=== PATIENT | male | born 1980 | race African-American/Black ===

== ENCOUNTER 2017-07-26 17:37 | Inpatient (IN) | payer OTHER ==
[2017-07-26 17:53] VITALS: BMI 32.1
--- NOTE | 2017-07-26 22:45 | HP ---
COWS - Scale Resting Pulse: 0= [place] 80 or Below Sweatin=Flushed/Facial Moisture Restless Observation: 1= Difficult to Sit Still Pupil Size: 1= Pupils >than Normal Bone or Joint Aches: 4=Acute Joint/Muscle Pain Runny Nose/ Eye Tearin= Runny Nose/Eyes GI Upset > 30mins: 2= Nausea/Diarrhea (diarrhea x 3) Tremor Observation: 2= Slight Tremor Visible Yawning Observation: 1= 1-2x During Session Anxiety or Irritability: 2=Irritable/Anxious Goose Flesh Skin: 0=Smooth Skin COWS Score: 17 CIWA Score - CIWA Score Nausea/Vomitin Muscle Tremors: 2 Anxiety: 3 Agitation: 0-Normal Activity Paroxysmal Sweats: 2 Orientation: 1-Uncertain about Date Tacttile Disturbances: 0-None Auditory Disturbances: 0-None Visual Disturbances: 0-None Headache: 4-Moderately Severe CIWA-Ar Total Score: 15 Admission ROS S - HPI Chief Complaint: Heroin and alcohol withdrawal symptoms Allergies/Adverse Reactions: Allergies Allergy/AdvReac Type Severity Reaction Status Date / Time No Known Allergies Allergy Verified 07/26/17 21:40 History of Present Illness: 37 years old male with a long history of heroin and alcohol dependence is seeking admission to detox. Patient has been to previous detox, last at [facility] in 2011. and he reports 6 years of sobriety. He denies past medical history, suicide attempt and suicidal ideation at this time. Exam Limitations: No Limitations - Ebola screening Have you traveled outside of the country in the last 21 days: No Have you had contact with anyone from an Ebola affected area: No Have you been sick,other than usual withdrawal symptoms: No Do you have a fever: No - Review of Systems Constitutional: Chills, Loss of Appetite, Malaise, Changes in sleep EENT: reports: No Symptoms Reported Respiratory: reports: No Symptoms reported Cardiac: reports: No Symptoms Reported GI: reports: Diarrhea (x 2), Poor Appetite, Poor Fluid Intake, Abdominal cramping : reports: No Symptoms Reported Musculoskeletal: reports: Back Pain, Muscle Pain Integumentary: reports: Dryness Neuro: reports: Headache, Tremors Endocrine: reports: No Symptoms Reported Hematology: reports: No Symptoms Reported Psychiatric: reports: Anxious Other Systems: Reviewed and Negative Patient History - Patient Medical History Hx Anemia: No Hx Asthma: No Hx Chronic Obstructive Pulmonary Disease (COPD): No Hx Cancer: No Hx Cardiac Disorders: No Hx Congestive Heart Failure: No Hx Hypertension: No Hx Hypercholesterolemia: No Hx Pacemaker: No HX Cerebrovascular Accident: No Hx Seizures: No Hx Dementia: No Hx Diabetes: No Hx Gastrointestinal Disorders: No Hx Liver Disease: No Hx Genitourinary Disorders: No Hx Sexually Transmitted Disorders: No (Negative 2017) Hx Renal Disease (ESRD): No Hx Thyroid Disease: No Hx Human Immunodeficiency Virus (HIV): No Hx Hepatitis C: No Hx Depression: No Hx Suicide Attempt: No (Denies suicide attempt and suicidal ideation at this time) Hx Bipolar Disorder: No Hx Schizophrenia: No Other Medical History: Anxiety- Not on mediccation - Patient Surgical History Past Surgical History: No Hx Neurologic Surgery: No Hx Cataract Extraction: No Hx Cardiac Surgery: No Hx Lung Surgery: No Hx Breast Surgery: No Hx Breast Biopsy: No Hx Abdominal Surgery: No Hx Appendectomy: No Hx Cholecystectomy: No Hx Genitourinary Surgery: No Hx Section: No Hx Orthopedic Surgery: No Hx Hysterectomy: No Anesthesia Reaction: No - PPD History Previous Implant?: Yes Documented Results: Negative w/o proof Implanted On Prior R Admission?: Yes PPD to be Administered?: Yes - Reproductive History Patient is a Female of Child Bearing Age (11 -55 yrs old): No (Male) - Smoking Cessation Smoking history: Current every day smoker Have you smoked in the past 12 months: Yes Aproximately how many cigarettes per day: 10 Cigars Per Day: 0 Hx Chewing Tobacco Use: No Initiated information on smoking cessation: Yes 'Breaking Loose' booklet given: 07/26/17 - Substance & Tx. History Hx Alcohol Use: Yes Hx Substance Use: Yes Substance Use Type: Cocaine, Heroin Hx [facility] - Substances Abused Heroin Route: Inhalation Frequency: Daily Amount used: 12 bags Age of first use: 23 Date of Last Use: 07/25/17 Alcohol Route: Oral Frequency: Daily Amount used: BEER 24oz. X 6 Age of first use: 14 Date of Last Use: 07/25/17 Family Disease History - Family Disease History Family Disease History: Heart Disease: Father (), Other: Mother (HIV+ ) Admission Physical Exam BHS - Vital Signs Vital Signs: Vital Signs - 24 hr 07/26/17 17:52 Temperature 97.8 F Pulse Rate 80 Respiratory 18 Rate Blood Pressure 148/77 - Physical General Appearance: Yes: Moderate Distress, Tremorous, Irritable, Sweating, Anxious HEENTM: Yes: EOMI, Normal ENT Inspection, Normocephalic, Normal Voice, MAYTE Respiratory: Yes: Lungs Clear, Normal Breath Sounds, No Respiratory Distress Neck: Yes: Supple Breast: Yes: Breast Exam Deferred Cardiology: Yes: Regular Rhythm, Regular Rate, S1, S2 Abdominal: Yes: Normal Bowel Sounds, Soft Genitourinary: Yes: Within Normal Limits Back: Yes: Normal Inspection Musculoskeletal: Yes: Back pain, Muscle Pain Extremities: Yes: Tremors Neurological: Yes: Alert, Normal Mood/Affect Integumentary: Yes: Warm Lymphatic: Yes: Within Normal Limits - Diagnostic (1) Alcohol dependence with uncomplicated withdrawal Current Visit: Yes Status: Chronic (2) Cocaine dependence, uncomplicated Current Visit: Yes Status: Chronic (3) Opioid dependence with withdrawal Current Visit: Yes Status: Chronic (4) Sedative, hypnotic or anxiolytic dependence with withdrawal, uncomplicated Current Visit: Yes Status: Chronic (5) Anxiety Current Visit: Yes Status: Chronic (6) Nicotine dependence Current Visit: Yes Status: Chronic Qualifiers: Nicotine product type: cigarettes Cleared for Admission [facility] - Detox or Rehab [facility] Level of Care: Medically Managed Detox Regimen/Protocol: Methadone/Librium [facility] Breath Alcohol Content Breath Alcohol Content: 0 Urine Drug Screen - Results Drug Screen Negative: Yes Urine Drug Screen Results: DEANN-Cocaine, OPI-Opiates, BZO-Benzodiazepines, MTD- Methadone
[2017-07-26] MEDS ORDERED: MAG HYDROX/AL HYDROX/SIMETH 30 ML UNIT-DOSE CUP PO PRN (22:57)
[2017-07-26] MEDS ORDERED: ACETAMINOPHEN 325 MG TABLET (FP) PO PRN (22:57)
[2017-07-26] MEDS ORDERED: P-EPHED 60MG/TRIPROLIDI 2.5MG TABLET PO PRN (22:57)
[2017-07-26] MEDS ORDERED: LOPERAMIDE HCL 2 MG CAPSULE PO PRN (22:57)
[2017-07-26] MEDS ORDERED: NICOTINE POLACRILEX 2 MG GUM BC PRN (22:57)
[2017-07-26] MEDS ORDERED: MAGNESIUM CITRATE 300 ML BOTTLE PO PRN (22:57)
[2017-07-26] MEDS ORDERED: MAGNESIUM HYDROX 2400MG/30ML ORAL SUSPENSION 30 ML CUP PO PRN (22:57)
[2017-07-26] MEDS ORDERED: guaiFENesin/D-METHORPHAN HB 10 ML UNIT-DOSE CUPS PO PRN (22:57)
[2017-07-26] MEDS ORDERED: IBUPROFEN 400 MG TABLET (FP) PO PRN (22:57)
[2017-07-26] MEDS ORDERED: MENTHOL/PHENOL 1 EACH UD MM PRN (22:57)
[2017-07-26] MEDS ORDERED: chlordiazePOXIDE HCL 25 MG CAPSULE PO PRN (22:57)
[2017-07-26] MEDS ORDERED: METHADONE HCL 10 MG TABLET (FOR DETOX USE ONLY) PO ONE (23:00)
[2017-07-26] MEDS: METHADONE HCL 10 MG TABLET (FOR DETOX USE ONLY) PO ONE ×2 (23:50→23:51)
[2017-07-26] MEDS: chlordiazePOXIDE HCL 25 MG CAPSULE PO SCH (23:51)
[2017-07-27] MEDS: chlordiazePOXIDE HCL 25 MG CAPSULE PO SCH ×4 (05:24→22:09)
[2017-07-27 07:48] LABS: URINE APPEARANCE TURBID; URINE BILIRUBIN NEGATIVE (<2.0 mg/dL); URINE COLOR YELLOW; URINE GLUCOSE (UA) NEGATIVE (NEGATIVE); URINE KETONE NEGATIVE (NEGATIVE); URINE LEUK ESTERASE NEGATIVE (NEGATIVE); URINE NITRITE NEGATIVE (NEGATIVE); URINE UROBILINOGEN 4.0 E.U/dl mg/dL (0.2-1.0)
[2017-07-27 08:01] LABS: URINE PROTEIN 1+ (NEGATIVE)
[2017-07-27 08:24] LABS: URINE BACTERIA RARE /hpf (NONE SEEN); URINE MUCUS MODERATE
--- NOTE | 2017-07-27 09:24 | CONSULT ---
[facility] Psychiatric Consult - Data Date of interview: 07/27/17 Admission source: [facility] Identifying data: This is 37nyears old male, with no pstcpsychiatic history with history of Alcohol, Cociane and Ncotinr dependence, patient reports Alcohol withdrawal symptoms and seeking for grtox Substance Abuse History: - Smoking Cessation. Smoking history: Current every day smoker. Have you smoked in the past 12 months: Yes. Aproximately how many cigarettes per day: 10. Cigars Per Day: 0. Hx Chewing Tobacco Use: No. Initiated information on smoking cessation: Yes. 'Breaking Loose' booklet given : 07/26/17. - Substance & Tx. History. Hx Alcohol Use: Yes. Hx Substance Use : Yes. Substance Use Type: Cocaine, Heroin. Hx Substance Use Treatment: Yes ( [facility]). - Substances Abused. Heroin. Route: Inhalation. Frequency : Daily. Amount used: 12 bags. Age of first use: 23. Date of Last Use: . Alcohol. Route: Oral. Frequency: Daily. Amount used: BEER 24oz. X 6. Age of first use: 14. Date of Last Use: 07/25/17 Medical History: Denies significant medical issues, Psychiatric History: Patient reports history of anxiety and depresion, reports no medicasions takinf prior to admission Physical/Sexual Abuse/Trauma History: Denies Additional Comment: Observation. Detox Unit Care Mental Status Exam - Mental Status Exam Alert and Oriented to: Person Cognitive Function: Fair Patient Appearance: Well Groomed Mood: Anxious Affect: Mood Congruent Patient Behavior: Resitive to Care Speech Pattern: Artificially Ventilated Thought Process: Goal Oriented Thought Disorder: Being Controlled Hallucinations: Denies Suicidal Ideation: Denies Homicidal Ideation: Denies Insight/Judgement: Fair Sleep: Difficulty falling asleep Appetite: Fair Muscle strength/Tone: Normal Gait/Station: Normal Additional Comments: Observation. Detox Unit Care Psychiatric Findings - Problem List ([place] 1, 2,3) (1) Drug-induced mood disorder Current Visit: Yes Status: Suspected (2) Alcohol dependence with uncomplicated withdrawal Current Visit: Yes Status: Chronic (3) Anxiety Current Visit: Yes Status: Chronic (4) Cocaine dependence, uncomplicated Current Visit: Yes Status: Chronic (5) Nicotine dependence Current Visit: Yes Status: Chronic Qualifiers: Nicotine product type: cigarettes (6) Opioid dependence with withdrawal Current Visit: Yes Status: Chronic (7) Sedative, hypnotic or anxiolytic dependence with withdrawal, uncomplicated Current Visit: Yes Status: Chronic - Initial Treatment Plan Initial Treatment Plan: Observation. Detox Unit Care
[2017-07-27] MEDS ORDERED: METHADONE HCL 10 MG TABLET (FOR DETOX USE ONLY) PO SCH (10:00)
[2017-07-27 10:04] LABS: HEMATOCRIT 38.9 % (35.4-49); HEMOGLOBIN 13.2 GM/dL (11.7-16.9); MCH 31.6 pg (25.7-33.7); MCHC 33.8 g/dl (32.0-35.9); MEAN CELL VOLUME 93.3 fl (80-96); MEAN PLT VOLUME 12.3 fl (7.5-11.1); PLATELET COUNT 127 K/MM3 (134-434); RBC 4.17 M/mm3 (4.00-5.60); RDW 13.1 % (11.9-15.9); WHITE BLOOD COUNT 3.7 K/mm3 (4.0-10.0)
[2017-07-27] MEDS: PRENATAL VITAMINS W/ FOLIC ACID TABLET (FP) PO SCH (10:23)
[2017-07-27] MEDS: NICOTINE 14 MG/24 HOURS TOPICAL PATCH TD SCH (10:23)
[2017-07-27 10:43] LABS: CHLORIDE 103 mmol/L (98-107); POTASSIUM 3.7 mmol/L (3.5-5.1); SODIUM 141 mmol/L (136-145)
--- NOTE | 2017-07-27 10:48 | PN ---
S CIWA - CIWA Score Nausea/Vomitin-Mild Nausea/No Vomiting Muscle Tremors: 1-None Visible, but [place] Anxiety: 1-Mildly Anxious Agitation: 1-Slight > Activity Paroxysmal Sweats: No Perspiration Orientation: 0-Oriented Tacttile Disturbances: 0-None Auditory Disturbances: 0-None Visual Disturbances: 0-None Headache: 0-None Present (`) CIWA-Ar Total Score: 4 BHS COWS - Scale Resting Pulse: 0= [place] 80 or Below Sweatin= No chills or Flushing Restless Observation: 1= Difficult to Sit Still Pupil Size: 0= Normal to Room Light Bone or Joint Aches: 1= Mild Discomfort Runny Nose/ Eye Tearin= None GI Upset > 30mins: 1= Stomach Cramp Tremor Observation of Outstretched Hands: 1= Tremor [place], Not Seen Yawning Observation: 0= None Anxiety or Irritability: 1=Feels Anxious/Irritable Goose Flesh Skin: 0=Smooth Skin COWS Score: 5 BHS Progress Note (SOAP) Subjective: Patient admitted 07/26/17 for detox from Heroin/Etoh. States "I feel ok". Mild anxiety, restlessness and increased bowel activity reported. Denies CP, SOB and Dizziness. Objective: 07/27/17 10:46 Obj: General: Alert and oriented x 3. In NAD. Skin: Warm and dry Car: S1S2 Resp: CTA BL Ext: Full ROM, no edema Assessment: 07/27/17 10:47 Withdrawal syndrome ETOH/Heroin Withdrawal syndrome Plan: Continue oral fluids continue current POC Medically stable continue to monitor clinically.
[2017-07-27 11:01] LABS: ALBUMIN 3.1 g/dl (3.4-5.0); ALK PHOS 74 U/L (45-117); ANION GAP 8 (8-16); BILIRUBIN,TOTAL 0.4 mg/dL (0.2-1.0); BLOOD UREA NITROGEN 15 mg/dL (7-18); CALCIUM 8.6 mg/dL (8.5-10.1); CO2 30 mmol/L (21-32); CREATININE 0.8 mg/dL (0.7-1.3); GLUCOSE,RANDOM 88 mg/dL (74-106); SGOT/AST 41 U/L (15-37); SGPT/ALT 65 U/L (12-78); TOT PROT 7.2 g/dl (6.4-8.2)
--- NOTE | 2017-07-27 11:59 | EKG ---
Test Reason : Blood Pressure : / mmHG Vent. Rate : 063 BPM Atrial Rate : 063 BPM P-R Int : 130 ms QRS Dur : 076 ms QT Int : 426 ms P-R-T Axes : 082 063 063 degrees QTc Int : 435 ms POOR DATA QUALITY, INTERPRETATION MAY BE ADVERSELY AFFECTED NORMAL SINUS RHYTHM WITH SINUS ARRHYTHMIA NORMAL ECG NO PREVIOUS ECGS AVAILABLE Confirmed by JEROME CHUNG, MARIANNA ([id number]) on 07/27/2017 11:58:52 AM Referred By: Confirmed By:MARIANNA CANO MD
[2017-07-27] MEDS: THIAMINE HCL 100 MG TABLET (FP) PO SCH (22:10)
[2017-07-27] MEDS: MELATONIN 5 MG TABLETS PO PRN (22:11)
[2017-07-28] MEDS: chlordiazePOXIDE HCL 25 MG CAPSULE PO SCH ×3 (05:45→17:44)
[2017-07-28] MEDS: PRENATAL VITAMINS W/ FOLIC ACID TABLET (FP) PO SCH (10:08)
[2017-07-28] MEDS: METHADONE HCL 5 MG TABLET (FOR DETOX USE ONLY) PO SCH (10:08)
[2017-07-28] MEDS: NICOTINE 14 MG/24 HOURS TOPICAL PATCH TD SCH (10:09)
--- NOTE | 2017-07-28 10:35 | PN ---
S CIWA - CIWA Score Nausea/Vomitin-No Nausea/No Vomiting Muscle Tremors: None Anxiety: 0-No Anxiety, at Ease Agitation: 0-Normal Activity Paroxysmal Sweats: 1-Minimal Palms Moist Orientation: 0-Oriented Tacttile Disturbances: 0-None Auditory Disturbances: 0-None BHS COWS - Scale Resting Pulse: 0= [place] 80 or Below Sweatin= No chills or Flushing Restless Observation: 0= Sits Still Pupil Size: 0= Normal to Room Light Bone or Joint Aches: 0= None Runny Nose/ Eye Tearin= None GI Upset > 30mins: 0= None Tremor Observation of Outstretched Hands: 0= None Yawning Observation: 0= None
--- NOTE | 2017-07-28 10:49 | PN ---
S Progress Note (SOAP) Subjective: Pt is at 2nd day of detox from alcohol and opioids. Says overall feeling OK- just a bit hot and sweaty. States going to rehab in [place] at discharge from here Objective: 07/28/17 10:37 CBCD WBC 3.7 K/mm3 (4.0-10.0) L 07/27/17 07:00 RBC 4.17 M/mm3 (4.00-5.60) 07/27/17 07:00 Hgb 13.2 GM/dL (11.7-16.9) 07/27/17 07:00 Hct 38.9 % (35.4-49) 07/27/17 07:00 MCV 93.3 fl (80-96) 07/27/17 07:00 MCHC 33.8 g/dl (32.0-35.9) 07/27/17 07:00 RDW 13.1 % (11.9-15.9) 07/27/17 07:00 Plt Count 127 K/MM3 (134-434) L 07/27/17 07:00 MPV 12.3 fl (7.5-11.1) H 07/27/17 07:00 CMP Sodium 141 mmol/L (136-145) 07/27/17 07:00 Potassium 3.7 mmol/L (3.5-5.1) 07/27/17 07:00 Chloride 103 mmol/L (98-107) 07/27/17 07:00 Carbon Dioxide 30 mmol/L (21-32) 07/27/17 07:00 Anion Gap 8 (8-16) 07/27/17 07:00 BUN 15 mg/dL (7-18) 07/27/17 07:00 Creatinine 0.8 mg/dL (0.7-1.3) 07/27/17 07:00 Creat Clearance w eGFR > 60 (>60) 07/27/17 07:00 Random Glucose 88 mg/dL (74-106) 07/27/17 07:00 Calcium 8.6 mg/dL (8.5-10.1) 07/27/17 07:00 Total Bilirubin 0.4 mg/dL (0.2-1.0) 07/27/17 07:00 AST 41 U/L (15-37) H 07/27/17 07:00 ALT 65 U/L (12-78) 07/27/17 07:00 Alkaline Phosphatase 74 U/L (45-117) 07/27/17 07:00 Total Protein 7.2 g/dl (6.4-8.2) 07/27/17 07:00 Albumin 3.1 g/dl (3.4-5.0) L 07/27/17 07:00 Vital Signs - 24 hr 07/27/17 07/27/17 07/27/17 13:07 18:03 22:33 Temperature 98.2 F 97.7 F 97.9 F Pulse Rate 71 57 L 67 Respiratory 16 18 19 Rate Blood Pressure 150/85 130/80 142/92 07/28/17 07/28/17 07/28/17 00:30 03:30 06:00 Temperature 97.7 F Pulse Rate 64 Respiratory 18 18 18 Rate Blood Pressure 128/77 07/28/17 10:00 Temperature 96.4 F L Pulse Rate 64 Respiratory 18 Rate Blood Pressure 146/75 alert and oriented grossly nl PE no hand tremors Assessment: 07/28/17 10:39 Continue alcohol detox and opioid detox- pt is stable Plan: Continue detox protocol and prn meds for anxiety- clonidine.
[2017-07-28] MEDS: THIAMINE HCL 100 MG TABLET (FP) PO SCH (22:29)
[2017-07-28] MEDS: chlordiazePOXIDE 5 MG CAPSULE PO SCH (22:29)
[2017-07-28] MEDS: MELATONIN 5 MG TABLETS PO PRN (22:30)
[2017-07-29] MEDS: chlordiazePOXIDE 5 MG CAPSULE PO SCH ×3 (05:39→19:59)
[2017-07-29] MEDS: METHADONE HCL 5 MG TABLET (FOR DETOX USE ONLY) PO SCH (10:06)
[2017-07-29] MEDS: PRENATAL VITAMINS W/ FOLIC ACID TABLET (FP) PO SCH (10:06)
[2017-07-29] MEDS: cloNIDine HCL 0.1 MG TABLET PO PRN ×2 (10:06→22:25)
[2017-07-29] MEDS: NICOTINE 14 MG/24 HOURS TOPICAL PATCH TD SCH (10:08)
--- NOTE | 2017-07-29 12:23 | PN ---
BHS Progress Note (SOAP) Subjective: Tremors, sweats and back bone Objective: 07/29/17 12:22 Vital Signs - 8 hr 07/29/17 07/29/17 06:45 10:38 Temperature 97.5 F L 97.7 F Pulse Rate 63 70 Respiratory 18 18 Rate Blood Pressure 142/85 141/80 Laboratory Last Values WBC 3.7 K/mm3 (4.0-10.0) L 07/27/17 07:00 RBC 4.17 M/mm3 (4.00-5.60) 07/27/17 07:00 Hgb 13.2 GM/dL (11.7-16.9) 07/27/17 07:00 Hct 38.9 % (35.4-49) 07/27/17 07:00 MCV 93.3 fl (80-96) 07/27/17 07:00 MCH 31.6 pg (25.7-33.7) 07/27/17 07:00 MCHC 33.8 g/dl (32.0-35.9) 07/27/17 07:00 RDW 13.1 % (11.9-15.9) 07/27/17 07:00 Plt Count 127 K/MM3 (134-434) L 07/27/17 07:00 MPV 12.3 fl (7.5-11.1) H 07/27/17 07:00 Sodium 141 mmol/L (136-145) 07/27/17 07:00 Potassium 3.7 mmol/L (3.5-5.1) 07/27/17 07:00 Chloride 103 mmol/L (98-107) 07/27/17 07:00 Carbon Dioxide 30 mmol/L (21-32) 07/27/17 07:00 Anion Gap 8 (8-16) 07/27/17 07:00 BUN 15 mg/dL (7-18) 07/27/17 07:00 Creatinine 0.8 mg/dL (0.7-1.3) 07/27/17 07:00 Creat Clearance w eGFR > 60 (>60) 07/27/17 07:00 Random Glucose 88 mg/dL (74-106) 07/27/17 07:00 Calcium 8.6 mg/dL (8.5-10.1) 07/27/17 07:00 Total Bilirubin 0.4 mg/dL (0.2-1.0) 07/27/17 07:00 AST 41 U/L (15-37) H 07/27/17 07:00 ALT 65 U/L (12-78) 07/27/17 07:00 Alkaline Phosphatase 74 U/L (45-117) 07/27/17 07:00 Total Protein 7.2 g/dl (6.4-8.2) 07/27/17 07:00 Albumin 3.1 g/dl (3.4-5.0) L 07/27/17 07:00 Urine Color Yellow 07/27/17 Unknown Urine Appearance Turbid 07/27/17 Unknown Urine pH 5.0 (5.0-8.0) 07/27/17 Unknown Ur Specific [place] 1.036 (1.001-1.035) H 07/27/17 Unknown Urine Protein 1+ (NEGATIVE) H 07/27/17 Unknown Urine Glucose (UA) Negative (NEGATIVE) 07/27/17 Unknown Urine Ketones Negative (NEGATIVE) 07/27/17 Unknown Urine Blood Negative (NEGATIVE) 07/27/17 Unknown Urine Nitrite Negative (NEGATIVE) 07/27/17 Unknown Urine Bilirubin Negative (<2.0 mg/dL) 07/27/17 Unknown Urine Urobilinogen 4.0 e.u/dl mg/dL (0.2-1.0) 07/27/17 Unknown Ur Leukocyte Esterase Negative (NEGATIVE) 07/27/17 Unknown Urine WBC (Auto) None /hpf (3-5) 07/27/17 Unknown Urine RBC (Auto) 1 /hpf (0-3) 07/27/17 Unknown Urine Bacteria Rare /hpf (NONE SEEN) 07/27/17 Unknown Urine Mucus Moderate 07/27/17 Unknown RPR Titer Nonreactive (NONREACTIVE) 07/27/17 07:00 HIV 1&2 Antibody Screen Negative 07/27/17 07:00 HIV P24 Antigen Negative 07/27/17 07:00 Labs noted Assessment: 07/29/17 12:22 Withdrawal sx Plan: Continue detox
[2017-07-29] MEDS: MELATONIN 5 MG TABLETS PO PRN (22:25)
[2017-07-29] MEDS: chlordiazePOXIDE HCL 10 MG CAPSULE PO SCH (22:25)
[2017-07-29] MEDS: THIAMINE HCL 100 MG TABLET (FP) PO SCH (22:25)
[2017-07-30] MEDS: chlordiazePOXIDE HCL 10 MG CAPSULE PO SCH ×2 (05:58→10:14)
[2017-07-30] MEDS ORDERED: METHADONE HCL 10 MG TABLET (FOR DETOX USE ONLY) PO SCH (10:00)
[2017-07-30] MEDS: PRENATAL VITAMINS W/ FOLIC ACID TABLET (FP) PO SCH (10:15)
[2017-07-30] MEDS: NICOTINE 14 MG/24 HOURS TOPICAL PATCH TD SCH (10:16)
--- NOTE | 2017-07-30 13:27 | PN ---
BHS Progress Note (SOAP) Subjective: FEELING BETTER LESS SWEAT NO TREMOR NO BODY ACHE SOCIAL WITH PEERS IN DAY ROOM ATTEND GROUPS Objective: 07/30/17 13:26 Vital Signs Temperature 97.2 F L 07/30/17 13:20 Pulse Rate 70 07/30/17 13:20 Respiratory Rate 18 07/30/17 13:20 Blood Pressure 127/77 07/30/17 13:20 O2 Sat by Pulse Oximetry (%) Laboratory Last Values WBC 3.7 K/mm3 (4.0-10.0) L 07/27/17 07:00 RBC 4.17 M/mm3 (4.00-5.60) 07/27/17 07:00 Hgb 13.2 GM/dL (11.7-16.9) 07/27/17 07:00 Hct 38.9 % (35.4-49) 07/27/17 07:00 MCV 93.3 fl (80-96) 07/27/17 07:00 MCH 31.6 pg (25.7-33.7) 07/27/17 07:00 MCHC 33.8 g/dl (32.0-35.9) 07/27/17 07:00 RDW 13.1 % (11.9-15.9) 07/27/17 07:00 Plt Count 127 K/MM3 (134-434) L 07/27/17 07:00 MPV 12.3 fl (7.5-11.1) H 07/27/17 07:00 Sodium 141 mmol/L (136-145) 07/27/17 07:00 Potassium 3.7 mmol/L (3.5-5.1) 07/27/17 07:00 Chloride 103 mmol/L (98-107) 07/27/17 07:00 Carbon Dioxide 30 mmol/L (21-32) 07/27/17 07:00 Anion Gap 8 (8-16) 07/27/17 07:00 BUN 15 mg/dL (7-18) 07/27/17 07:00 Creatinine 0.8 mg/dL (0.7-1.3) 07/27/17 07:00 Creat Clearance w eGFR > 60 (>60) 07/27/17 07:00 Random Glucose 88 mg/dL (74-106) 07/27/17 07:00 Calcium 8.6 mg/dL (8.5-10.1) 07/27/17 07:00 Total Bilirubin 0.4 mg/dL (0.2-1.0) 07/27/17 07:00 AST 41 U/L (15-37) H 07/27/17 07:00 ALT 65 U/L (12-78) 07/27/17 07:00 Alkaline Phosphatase 74 U/L (45-117) 07/27/17 07:00 Total Protein 7.2 g/dl (6.4-8.2) 07/27/17 07:00 Albumin 3.1 g/dl (3.4-5.0) L 07/27/17 07:00 Urine Color Yellow 07/27/17 Unknown Urine Appearance Turbid 07/27/17 Unknown Urine pH 5.0 (5.0-8.0) 07/27/17 Unknown Ur Specific [place] 1.036 (1.001-1.035) H 07/27/17 Unknown Urine Protein 1+ (NEGATIVE) H 07/27/17 Unknown Urine Glucose (UA) Negative (NEGATIVE) 07/27/17 Unknown Urine Ketones Negative (NEGATIVE) 07/27/17 Unknown Urine Blood Negative (NEGATIVE) 07/27/17 Unknown Urine Nitrite Negative (NEGATIVE) 07/27/17 Unknown Urine Bilirubin Negative (<2.0 mg/dL) 07/27/17 Unknown Urine Urobilinogen 4.0 e.u/dl mg/dL (0.2-1.0) 07/27/17 Unknown Ur Leukocyte Esterase Negative (NEGATIVE) 07/27/17 Unknown Urine WBC (Auto) None /hpf (3-5) 07/27/17 Unknown Urine RBC (Auto) 1 /hpf (0-3) 07/27/17 Unknown Urine Bacteria Rare /hpf (NONE SEEN) 07/27/17 Unknown Urine Mucus Moderate 07/27/17 Unknown RPR Titer Nonreactive (NONREACTIVE) 07/27/17 07:00 HIV 1&2 Antibody Screen Negative 07/27/17 07:00 HIV P24 Antigen Negative 07/27/17 07:00 LAB NOTED Assessment: 07/30/17 13:26 MILD WITHDRAWAL SX Plan: MEDICALLY SUPERVISED DETOX
[2017-07-31] MEDS ORDERED: METHADONE HCL 5 MG TABLET (FOR DETOX USE ONLY) PO SCH (06:00)
[2017-07-31 08:32] VITALS: BP 123/78; PULSE 65; TEMP 97.7
[2017-07-31] MEDS: THIAMINE HCL 100 MG TABLET (FP) PO SCH (08:32)
[2017-07-31] MEDS: chlordiazePOXIDE HCL 10 MG CAPSULE PO SCH (08:32)
--- NOTE | 2017-07-31 09:23 | DS ---
[facility] Discharge Summary Admission Date: 07/26/17 Discharge Date: 07/31/17 - History Present History: Alcohol Dependence, Opioid Dependence Additional Comments: 37 years old male admitted 07/26/17 for alcohol and opiate withdrawal sx completed detox regimen tolerated well denies alcohol and opiate withdrawal sx alert oriented x 3 no acute distress aftercare [facility] - Physical Exam Results Vital Signs: Vital Signs Temperature 97.7 F 07/31/17 08:32 Pulse Rate 65 07/31/17 08:32 Respiratory Rate 18 07/31/17 08:32 Blood Pressure 123/78 07/31/17 08:32 O2 Sat by Pulse Oximetry (%) Pertinent Admission Physical Exam Findings: alcohol and opiate withdrawal sx Vital Signs Temperature 97.7 F 07/31/17 08:32 Pulse Rate 65 07/31/17 08:32 Respiratory Rate 18 07/31/17 08:32 Blood Pressure 123/78 07/31/17 08:32 O2 Sat by Pulse Oximetry (%) Laboratory Last Values WBC 3.7 K/mm3 (4.0-10.0) L 07/27/17 07:00 RBC 4.17 M/mm3 (4.00-5.60) 07/27/17 07:00 Hgb 13.2 GM/dL (11.7-16.9) 07/27/17 07:00 Hct 38.9 % (35.4-49) 07/27/17 07:00 MCV 93.3 fl (80-96) 07/27/17 07:00 MCH 31.6 pg (25.7-33.7) 07/27/17 07:00 MCHC 33.8 g/dl (32.0-35.9) 07/27/17 07:00 RDW 13.1 % (11.9-15.9) 07/27/17 07:00 Plt Count 127 K/MM3 (134-434) L 07/27/17 07:00 MPV 12.3 fl (7.5-11.1) H 07/27/17 07:00 Sodium 141 mmol/L (136-145) 07/27/17 07:00 Potassium 3.7 mmol/L (3.5-5.1) 07/27/17 07:00 Chloride 103 mmol/L (98-107) 07/27/17 07:00 Carbon Dioxide 30 mmol/L (21-32) 07/27/17 07:00 Anion Gap 8 (8-16) 07/27/17 07:00 BUN 15 mg/dL (7-18) 07/27/17 07:00 Creatinine 0.8 mg/dL (0.7-1.3) 07/27/17 07:00 Creat Clearance w eGFR > 60 (>60) 07/27/17 07:00 Random Glucose 88 mg/dL (74-106) 07/27/17 07:00 Calcium 8.6 mg/dL (8.5-10.1) 07/27/17 07:00 Total Bilirubin 0.4 mg/dL (0.2-1.0) 07/27/17 07:00 AST 41 U/L (15-37) H 07/27/17 07:00 ALT 65 U/L (12-78) 07/27/17 07:00 Alkaline Phosphatase 74 U/L (45-117) 07/27/17 07:00 Total Protein 7.2 g/dl (6.4-8.2) 07/27/17 07:00 Albumin 3.1 g/dl (3.4-5.0) L 07/27/17 07:00 Urine Color Yellow 07/27/17 Unknown Urine Appearance Turbid 07/27/17 Unknown Urine pH 5.0 (5.0-8.0) 07/27/17 Unknown Ur Specific [place] 1.036 (1.001-1.035) H 07/27/17 Unknown Urine Protein 1+ (NEGATIVE) H 07/27/17 Unknown Urine Glucose (UA) Negative (NEGATIVE) 07/27/17 Unknown Urine Ketones Negative (NEGATIVE) 07/27/17 Unknown Urine Blood Negative (NEGATIVE) 07/27/17 Unknown Urine Nitrite Negative (NEGATIVE) 07/27/17 Unknown Urine Bilirubin Negative (<2.0 mg/dL) 07/27/17 Unknown Urine Urobilinogen 4.0 e.u/dl mg/dL (0.2-1.0) 07/27/17 Unknown Ur Leukocyte Esterase Negative (NEGATIVE) 07/27/17 Unknown Urine WBC (Auto) None /hpf (3-5) 07/27/17 Unknown Urine RBC (Auto) 1 /hpf (0-3) 07/27/17 Unknown Urine Bacteria Rare /hpf (NONE SEEN) 07/27/17 Unknown Urine Mucus Moderate 07/27/17 Unknown RPR Titer Nonreactive (NONREACTIVE) 07/27/17 07:00 HIV 1&2 Antibody Screen Negative 07/27/17 07:00 HIV P24 Antigen Negative 07/27/17 07:00 lab noted - Treatment Hospital Course: Detox Protocol Followed, Detoxed Safely, Responded well, Discharged Condition Good, Rehab Referral Accepted Patient has Accepted a Rehab Referral to: [facility] - Medication Discharge Medications: Ambulatory Orders NK [No Known Home Medication] 07/26/17 - Diagnosis (1) Alcohol dependence with uncomplicated withdrawal Current Visit: Yes Status: Acute (2) Opioid dependence with withdrawal Current Visit: Yes Status: Acute (3) Nicotine dependence Current Visit: Yes Status: Acute Qualifiers: Nicotine product type: cigarettes Substance use status: in withdrawal Qualified Code(s): F17.213 - Nicotine dependence, cigarettes, with withdrawal - AMA Did Patient Leave Against Medical Advice: No
== END 2017-07-31 11:12 | disposition home or self-care (01) | DRG 773 ==
LOC: YASAS 17:37 → Y6N 21:56
PROVIDERS: ADMIT Family Medicine Addiction Medicine; ATTEND Family Medicine Addiction Medicine
PROC: HZ2ZZZZ Detoxification Services for Substance Abuse Treatment (ICD-10-PCS; principal; 2017-07-26)
DX: F11.23 Opioid dependence with withdrawal (principal); F13.230 Sedative, hypnotic or anxiolytic dependence with withdrawal, uncomplicated; F10.230 Alcohol dependence with withdrawal, uncomplicated; F14.20 Cocaine dependence, uncomplicated; F17.213 Nicotine dependence, cigarettes, with withdrawal; F19.24 Other psychoactive substance dependence with psychoactive substance-induced mood disorder; F41.9 Anxiety disorder, unspecified; Z59.0 Homelessness
CPT/HCPCS: 36415; 80053; 81003; 81015; 85027; 86593; 87389; 93005; 93010; J0735